=== PATIENT | female | born 1980 | race Caucasian/White ===

== ENCOUNTER 2016-11-30 20:45 | Emergency (ER) | payer OTHER ==
[2016-11-30 21:02] VITALS: BP 150/67; PULSE 97; RESP 16; TEMP 99.1
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
[2016-11-30] MEDS: HYDROcodone/APAP 5-325MG 1 EACH TAB PO STA ×2 (21:27→21:30)
== END 2016-11-30 21:30 | disposition home or self-care (01) ==
LOC: EC 20:45
DX: E11.40 Type 2 diabetes mellitus with diabetic neuropathy, unspecified (principal); G89.29 Other chronic pain; F41.9 Anxiety disorder, unspecified; F17.200 Nicotine dependence, unspecified, uncomplicated; Z79.4 Long term (current) use of insulin; Z79.899 Other long term (current) drug therapy; Z88.6 Allergy status to analgesic agent; Z88.8 Allergy status to other drugs, medicaments and biological substances
CPT/HCPCS: 99283

== ENCOUNTER 2017-10-20 22:28 | Observation (INO) | payer OTHER ==
[2017-10-20 22:48] VITALS: RESP 18
[2017-10-20 23:17] LABS: Basophils # (A) 0.1 k/uL (0-0.2); Basophils % (A) 0 %; Eosinophils # (A) 0.1 k/uL (0-0.7); Eosinophils % (A) 1 %; HCT 47.5 % (34.0-46.0); HGB 15.4 gm/dL (11.4-16.0); Lymphocytes # (A) 3.4 k/uL (1.0-4.8); Lymphocytes % (A) 21 %; MCH 33.1 pg (25.0-35.0); MCHC 32.4 g/dL (31.0-37.0); MCV 101.9 fL (80.0-100.0); Macrocytosis Slight; Mean Platelet Volume 6.9; Monocytes # (A) 0.5 k/uL (0-1.0); Monocytes % (A) 3 %; Neutrophils # (A) 12.2 k/uL (1.3-7.7); Neutrophils % (A) 74 %; Platelet Count 477 k/uL (150-450); RBC 4.66 m/uL (3.80-5.40); RDW 13.4 % (11.5-15.5); WBC 16.4 k/uL (3.8-10.6)
[2017-10-20] MEDS ORDERED: NITROGLYCERIN SL TABS 0.4 MG TAB SUBLINGUAL STA ×3 (23:24)
[2017-10-20] MEDS ORDERED: ASPIRIN 81 MG PO STA (23:24)
[2017-10-20 23:27] LABS: ALT 277 U/L (9-52); AST 158 U/L (14-36); Albumin 4.7 g/dL (3.5-5.0); Alkaline Phosphatase 245 U/L (38-126); Anion Gap 26 mmol/L; Blood Urea Nitrogen 13 mg/dL (7-17); Calcium 10.4 mg/dL (8.4-10.2); Chloride 106 mmol/L (98-107); Glucose 188 mg/dL (74-99); Magnesium 1.8 mg/dL (1.6-2.3); Potassium 4.5 mmol/L (3.5-5.1); Sodium 142 mmol/L (137-145); Total Bilirubin 0.5 mg/dL (0.2-1.3); Total Protein 8.2 g/dL (6.3-8.2)
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
[2017-10-20 23:30] LABS: Carbon Dioxide 10 mmol/L (22-30)
[2017-10-20 23:39] LABS: Creatine Kinase 39 U/L (30-135); D-Dimer <0.17 mg/L FEU (<0.60); INR 1.1 (<1.2); Partial Thromboplastin Time 23.4 sec (22.0-30.0); Prothrombin Time 10.6 sec (9.0-12.0)
[2017-10-20 23:51] LABS: Creatine Kinase MB 0.3 ng/mL (0.0-2.4); Troponin I <0.012 ng/mL (0.000-0.034)
--- NOTE | 2017-10-20 23:58 | XR ---
EXAMINATION TYPE: XR chest 2V DATE OF EXAM: 10/20/2017 COMPARISON: 03/12/2015 HISTORY: Chest pain TECHNIQUE: Frontal and lateral views of the chest are obtained. FINDINGS: Heart and mediastinum are normal. Lungs are clear. Diaphragm is normal. There are chest le ads. Bony thorax is intact. IMPRESSION: Normal chest. No change.
[2017-10-21 01:11] LABS: Glucose,Whole Blood 75 mg/dL (75-99)
[2017-10-21] MEDS ORDERED: SODIUM CHLORIDE 0.9% 1,000 ML IV STA ×2 (01:21→01:31)
[2017-10-21 01:29] LABS: Glucose,Whole Blood 67 mg/dL (75-99)
[2017-10-21] MEDS ORDERED: LORazepam 2 MG/ML INJ IV STA (01:31)
[2017-10-21 01:51] LABS: Glucose,Whole Blood 60 mg/dL (75-99)
[2017-10-21] MEDS ORDERED: DEXTROSE 5%-0.45% NACL 1,000 ML IV ONE (01:55)
[2017-10-21] MEDS ORDERED: NITROGLYCERIN SL TABS 0.4 MG TAB SUBLINGUAL PRN (02:08)
[2017-10-21 02:14] LABS: Glucose,Whole Blood 92 mg/dL (75-99)
[2017-10-21] MEDS ORDERED: SODIUM CHLORIDE 0.9% 1,000 ML IV SCH (02:15)
[2017-10-21] MEDS ORDERED: D5-0.45% NACL WITH KCL 20MEQ/L 1,000 ML IV SCH (02:15)
[2017-10-21 03:06] LABS: Glucose,Whole Blood 157 mg/dL (75-99)
[2017-10-21 04:15] LABS: Glucose,Whole Blood 246 mg/dL (75-99)
[2017-10-21] MEDS ORDERED: Potassium Replacement Protocol 1 EACH MISC MISCELLANE PRN (04:55)
[2017-10-21] MEDS ORDERED: Magnesium Replacement Protocol 1 EACH MISC MISCELLANE PRN (04:55)
[2017-10-21] MEDS ORDERED: INSULIN REGULAR 100 UNIT in SODIUM CHLORIDE 0.9% 100 ML IV SCH (05:00)
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
[2017-10-21 05:09] LABS: Glucose,Whole Blood 277 mg/dL (75-99)
[2017-10-21 05:22] LABS: Anion Gap 19 mmol/L; Blood Urea Nitrogen 11 mg/dL (7-17); Carbon Dioxide 14 mmol/L (22-30); Chloride 107 mmol/L (98-107); Glucose 209 mg/dL (74-99); Phosphorus 3.1 mg/dL (2.5-4.5); Potassium 3.9 mmol/L (3.5-5.1); Sodium 140 mmol/L (137-145)
[2017-10-21] MEDS ORDERED: oxyCODONE-APAP 7.5-325MG 1 EACH TAB PO STA (05:29)
[2017-10-21 05:43] VITALS: TEMP 98.3
[2017-10-21 06:11] LABS: Glucose,Whole Blood 337 mg/dL (75-99)
[2017-10-21 06:14] LABS: Creatine Kinase 34 U/L (30-135)
[2017-10-21 06:27] LABS: Creatine Kinase MB 0.3 ng/mL (0.0-2.4); Troponin I <0.012 ng/mL (0.000-0.034)
[2017-10-21 07:27] VITALS: BP 117/65; PULSE 110
[2017-10-21 07:37] LABS: Glucose,Whole Blood 218 mg/dL (75-99)
--- NOTE | 2017-10-21 10:09 | P.DS ---
Providers Date of admission: 10/21/17 02:08 Attending physician: Dangelo Reyes MD Consults: 10/21/17 02:08 Consult Physician Stat Consulting Provider: Gene Jones Consult Reason/Comments: critical care Do you want consulting provider notified?: Yes Consult Physician Urgent Consulting Provider: Vasquez Garcia Consult Reason/Comments: cp Do you want consulting provider notified?: Yes Primary care physician: Stated None Hospital Course: I was not involved in the direct care of this patient, Im only helping in closing the chart and documenting a discharge summary. Patient is admitted with DKA , the patient apparently gave herself 25 U of apidra prior to presentation, in the ED she was given aspirin and 1 L IVF bolus of fluids and placed on D5 half-normal 150 mL an hour. Patient refused ABG, however given reported elevated blood sugars at home, metabolic acidosis with serum bicarb of 10 and elevated serum acetone level is reasonable to assume the patient has DKA. management continued wtih serial labs chemistries, nothing by mouth status with low-dose insulin drip The patient chest pain has atypical features cycle her troponins of note her initial EKG in cardiac enzymes are negative for any suggestion of acute ischemia, her pain is likely musculoskeletal in etiology or due to her underlying chronic pain. The patient has a leukocytosis but no fever possible acute phase response, will check urinalysis, UDS, blood culture and KUB. During the interview the patient's father stated that the patient was on MS Contin 60 mg TID but was unable to give any information regarding the patient's previous PCP or any information from the physician prescribing narcotics for stated neuropathy, they did note however that they are in the process of finding a new physician. A quick check on the [employer] website indicates that the patient has not been prescribed any narcotics since 12/12/15 making me suspicious of possible drug-seeking behavior. Patient has left from the ED against medical advice. again I was not involved directly in her care. Patient Condition at Discharge: Undetermined Plan - Discharge Summary New Discharge Prescriptions: No Action Insulin Glulisine [Apidra] See Protocol SQ AC-TID Furosemide [Lasix] 60 mg PO DAILY Insulin Glargine [Lantus] 6 unit SQ HS Ranitidine HCl [Zantac] 300 mg PO HS Discharge Medication List Furosemide [Lasix] 60 mg PO DAILY 06/03/14 [History] Insulin Glulisine [Apidra] See Protocol SQ AC-TID 06/03/14 [History] Insulin Glargine [Lantus] 6 unit SQ HS 10/21/17 [History] Ranitidine HCl [Zantac] 300 mg PO HS 10/21/17 [History] Follow up Appointment(s)/Referral(s): None,Stated [Primary Care Provider] - 1-2 days
[2017-10-22] MEDS ORDERED: ASPIRIN 325 MG TAB PO SCH (09:00)
== END 2017-10-21 08:00 | disposition left against medical advice (07) ==
LOC: EC 22:28 → 6ICU 10-21 02:08 → INTOOBSV 10-21 02:08 → UNDODISIN 10-21 08:00
PROVIDERS: ADMIT Family Medicine; ATTEND Family Medicine
DX: E10.10 Type 1 diabetes mellitus with ketoacidosis without coma (principal); R07.89 Other chest pain; E10.42 Type 1 diabetes mellitus with diabetic polyneuropathy; F41.9 Anxiety disorder, unspecified; R41.3 Other amnesia; R51 Headache; M79.606 Pain in leg, unspecified; G89.29 Other chronic pain; F17.200 Nicotine dependence, unspecified, uncomplicated; Z79.4 Long term (current) use of insulin; Z79.891 Long term (current) use of opiate analgesic; Z88.8 Allergy status to other drugs, medicaments and biological substances; Z88.5 Allergy status to narcotic agent; Z79.899 Other long term (current) drug therapy; Z91.410 Personal history of adult physical and sexual abuse; Z87.820 Personal history of traumatic brain injury; Z87.11 Personal history of peptic ulcer disease; Z86.011 Personal history of benign neoplasm of the brain; Z82.49 Family history of ischemic heart disease and other diseases of the circulatory system; Z83.79 Family history of other diseases of the digestive system
CPT/HCPCS: 96365; 96366; 96367; 96375; 99291; 36415 ×2; 93005; 85379; 80051; 80053; 82565; 82550 ×2; 82553 ×2; 82009; 83735; 84100; 82947; 84520; 84484 ×2; 85025; 85610; 85730; 71046; G0378; J2060

== ENCOUNTER 2019-01-29 10:13 | Emergency (ER) | payer OTHER ==
[2019-01-29 10:37] LABS: Glucose,Whole Blood 310 mg/dL (75-99)
[2019-01-29 10:40] VITALS: BP 110/72; PULSE 89; RESP 16; TEMP 98
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
[2019-01-29 11:20] LABS: Glucose,Whole Blood 420 mg/dL (75-99)
== END 2019-01-29 11:20 | disposition home or self-care (01) ==
LOC: EC 10:13
DX: E10.65 Type 1 diabetes mellitus with hyperglycemia (principal); E10.40 Type 1 diabetes mellitus with diabetic neuropathy, unspecified; F17.200 Nicotine dependence, unspecified, uncomplicated; Z88.6 Allergy status to analgesic agent; Z88.8 Allergy status to other drugs, medicaments and biological substances; Z79.4 Long term (current) use of insulin; Z79.899 Other long term (current) drug therapy; Z53.20 Procedure and treatment not carried out because of patient's decision for unspecified reasons
CPT/HCPCS: 36415; 99285